=== PATIENT | male | born 1960 | race Caucasian/White ===

== ENCOUNTER 2017-06-15 15:02 | Emergency (ER) | payer OTHER ==
--- NOTE | 2017-06-15 16:08 | RAD ---
PORTABLE FRONTAL CHEST RADIOGRAPH: Date: 06/15/17 COMPARISON: None. HISTORY: Shortness of breath. FINDINGS: No pneumothorax is noted. No large volume pleural effusion is seen. There is mild interstitial promi nence in bilateral perihilar regions. There is atherosclerotic calcification of the aortic arch. There is mild contour irregularity involving the left hilar region and the superolateral aspect of t he left heart border, not well characterized on portable AP imaging. Thus, PA and lateral chest imag ing is advised. IMPRESSION: Contour irregularity involving the left hilar region and lateral superior heart border, significance uncertain without comparison imaging. Infiltrate or underlying mass cannot be fully excluded and th us, PA and lateral chest imaging advised. CODE T. POS: LATOYA
[2017-06-15 16:14] LABS: Hemoglobin (Hb) 15.9 g/dL (13.1-17.2); pH (venous) 7.33 (7.34-7.37)
[2017-06-15 16:17] LABS: #Basophils 0.1 thou/uL (0.0-0.2); #Lymphocytes 1.2 thou/uL (1.20-3.40); #Monocytes 0.9 thou/uL (0.11-0.59); #Neutrophils 6.1 thou/uL (1.40-6.50); %Basophils 1.2 % (0.0-1.0); %Eosinophils 0.2 % (0.0-10.0); %Lymphocytes 14.2 % (21.0-51.0); %Monocytes 10.5 % (0.0-10.0); %Neutrophils 73.9 % (42.0-75.0); Hemoglobin 16.8 g/dL (14.0-18.0); Mean Corpuscular HGB CONC 29.3 g/dL (32.0-36.0); Mean Corpuscular Hemoglobin 27.4 pg (27.0-31.0); Mean Corpuscular Volume 93.6 fl (80.0-94.0); Mean Platelet Volume 7.7 fL (7.4-10.4); Platelet Count 131 thou/uL (130-400); RBC Distribution Width 14.8 % (11.5-14.5); Red Blood Cell (RBC) Count 6.11 mill/uL (4.70-6.10); White Blood Cell (WBC) Count 8.3 thou/uL (4.8-10.8)
[2017-06-15 16:27] LABS: ALT (SGPT) 11 U/L (8-55); AST (SGOT) 14 U/L (5-34); Albumin 4.2 g/dL (3.5-5.0); Alkaline Phosphatase 70 U/L (40-150); BUN (Urea Nitrogen) 12 mg/dL (8.4-25.7); CK (CPK) 55 U/L (30-200); CKMB 2.2 ng/mL (0-6.6); Calc. Creatinine Clearance 0 mL/min (70-130); Calcium 9.4 mg/dL (7.8-10.44); Estimated GFR-MDRD Greater than 90; Globulin 2.5 g/dL (2.4-3.5); Glucose 101 mg/dL (70-105); Protein, Total 6.7 g/dL (6.0-8.3); Troponin I Less than 0.010 ng/mL (< 0.028)
[2017-06-15 16:31] LABS: Chloride 100 mmol/L (98-107); Potassium 4.4 mmol/L (3.5-5.1); Sodium 145 mmol/L (136-145)
[2017-06-15 16:52] LABS: Hypochromia MODERATE=16-30 cells (100X) (0-5/hpf); MDiff Complete? YES; PLT Morphology Comment Appears Adequate
[2017-06-15 17:42] LABS: Anion Gap 14 mmol/L (10-20); Carbon Dioxide 35 mmol/L (22-29)
== END 2017-06-15 17:34 | disposition short-term general hospital (02) ==
LOC: NAV ERS 15:02
DX: J96.01 Acute respiratory failure with hypoxia (principal); J96.02 Acute respiratory failure with hypercapnia; J44.9 Chronic obstructive pulmonary disease, unspecified; F17.210 Nicotine dependence, cigarettes, uncomplicated
CPT/HCPCS: 36415; 71010; 80053; 82550; 82553; 82805; 83880; 84484; 85025; 93005; 94640; 96361; 96374